=== PATIENT | male | born 1995 | race Two or more races ===

== ENCOUNTER 2017-09-19 20:18 | Emergency (ER) | payer MEDICAID, OTHER ==
[2017-09-19] MEDS: LIDOCAINE WITH 8.4% SOD BICARB 3 ML DISP.SYRIN. INJ (21:30)
== END 2017-09-19 21:48 | disposition home or self-care (01) ==
LOC: ER 20:18
DX: L02.413 Cutaneous abscess of right upper limb (principal); Q90.9 Down syndrome, unspecified
CPT/HCPCS: 10060; 99283-25